=== PATIENT | male | born 1990 | race Caucasian/White ===

== ENCOUNTER 2016-08-31 12:40 | Day surgery (SDC) | payer OTHER ==
[~2016-08-31] VITALS: Ht 180.3 cm; Wt 81.7 kg
[~2016-08-31 12:40] MED LIST: 0.9% Sodium Chloride 1,000 ML IV SCH; Sodium Biphos-Phos 133 mL Enema RECTAL PRN; Sodium Chloride LOK Flush 10 mL Syringe IV PRN; fentaNYL-PF 50 mCg/mL 2 mL Inj IVPUSH PRN
[2016-08-31 12:59] VITALS: PULSE 44; RESP 14; O2SAT 100
[2016-08-31 13:12] VITALS: BP 117/69; PULSE 56; RESP 16; O2SAT 100
[2016-08-31 13:48] VITALS: BP 109/65; PULSE 64; RESP 15; O2SAT 98
--- NOTE | 2016-08-31 14:16 | ENDO ---
[address] [address] ENDOSCOPY PROCEDURE PATIENT: JAMARCUS TEIXEIRA : 1990 MR#: [id number] ADMIT: 08/31/2016 JOB ID: [id number] PREPROCEDURE DIAGNOSIS: Rectal bleeding. POSTPROCEDURE DIAGNOSIS: Small internal hemorrhoids, mildly prominent ileocecal valve, no other abnormalities. PROCEDURE: Colonoscopy with biopsies. ENDOSCOPIST: Cedrick Jaeger MD INDICATIONS: The patient is a 26-year-old man who has been having off and on rectal bleeding for 10 years which is bright red blood on the toilet paper and dripping into the toilet. He has no unplanned weight loss, no abdominal pain, and no family history of inflammatory bowel disease. He does have a personal history of hematuria evaluated in Urology Clinic. After discussion of the risks and benefits, he agreed to proceed with colonoscopy. FINDINGS: There was a slightly prominent ileocecal valve, which was biopsied. The terminal ileum was normal. There were no mucosal abnormalities throughout the colon. Retroflexion revealed small internal hemorrhoids. DESCRIPTION OF PROCEDURE: Procedural sedation was achieved. He was connected to hemodynamic monitoring, pulse oximetry, capnography. After digital rectal exam, the PCF H 180 AL colonoscope was inserted and passed under visualization until the ileocecal valve and appendiceal orifice were visualized and photo documented. The terminal ileum was intubated for approximately 10 cm, which was morphologically normal. There was no blood in the terminal ileum. Biopsies were obtained from the terminal ileum mucosa and sent for pathology. The ileocecal valve was slightly prominent. It was smooth. A biopsy was obtained from the ileocecal valve with cold forceps and sent for permanent pathology. The scope was then carefully withdrawn. There were no polyps or mucosal abnormalities. Retroflexion in the rectum revealed small internal hemorrhoids. The scope was withdrawn and the procedure was terminated. He tolerated the entire procedure well. RECOMMENDATIONS: He should follow up in Surgery Clinic in 2-3 weeks for consideration of hemorrhoid banding.
--- NOTE | 2016-09-02 11:20 | PATH ---
SURGICAL PATHOLOGY Attending Physician:Yaneth Meade CASE STATUS: Signed Out PATIENT NAME: JAMARCUS TEIXEIRA PID: [id number] : 1990 DATE COLLECTED:08/31/2016 00:00 SPECIMEN: 1: Small Intestine/Bowel, Biopsy 2: Small Intestine/Bowel, Biopsy CLINICAL HISTORY: 1. TI BXS 2. ICV BXS FINAL DIAGNOSIS: 1.TERMINAL ILEUM BIOPSIES: SUPERFICIAL FRAGMENTS OF TERMINAL ILEUM MUCOSA, NEGATIVE FOR SIGNIFICANT INFLAMMATION. Negative for granulomas. Negative for dysplasia and malignancy. 2.ILEOCECAL VALVE BIOPSIES: FRAGMENTS OF TERMINAL ILEUM WITH NONSPECIFIC CHRONIC INFLAMMATION AND FOCAL MUCOSAL EROSION. No granulomas identified. No definite colonic mucosa noted. Negative for malignancy and significant atypia. ICD10 R10.9 GROSS DESCRIPTION: The specimen is received in two formalin filled containers labeled with the patient's name. 1). The specimen is sublabeled " TI " and consists of a 0.5 x 0.3 x 0.2 CM portion of tissue which is entirely submitted in cassette 1A. 2). The specimen is sublabeled " ICV " and consists of 2 portions of tissue which aggregate to 0.4 x 0.3 x 0.2 CM. The specimen is entirely submitted in cassette 2A. 09/01/2016 DAC MICRO DESCRIPTION: See diagnosis. ICD-9 CODES: CPT CODES: 1: 25937 2: 72853 Electronically Signed Out Sawyer Alves MD [facility] Pathology [facility] [address], [place] [address] Technical component performed at [facility], [address] [place] [address] [address], [address]
== END 2016-08-31 23:59 | disposition home or self-care (01) ==
LOC: END 12:40
PROVIDERS: ATTEND Student in an Organized Health Care Education/Training Program
DX: K62.5 Hemorrhage of anus and rectum (principal); K64.8 Other hemorrhoids
CPT/HCPCS: 45380; 99153; G0500; J2250; J3010; J7030